=== PATIENT | female | born 1960 | race Caucasian/White ===

== ENCOUNTER 2018-03-01 11:28 | Day surgery (SDC) | payer OTHER ==
[2018-03-01] MEDS ORDERED: FENTAnyl 50 MCG/ML VIAL (13:34)
[2018-03-01] MEDS ORDERED: PROPOFOL 20 ML (13:34)
== END 2018-03-01 15:11 | disposition home or self-care (01) ==
LOC: GIL 11:28
DX: Z12.11 Encounter for screening for malignant neoplasm of colon (principal); K57.90 Diverticulosis of intestine, part unspecified, without perforation or abscess without bleeding; K64.8 Other hemorrhoids; E11.9 Type 2 diabetes mellitus without complications; I10 Essential (primary) hypertension; I25.10 Atherosclerotic heart disease of native coronary artery without angina pectoris
CPT/HCPCS: 45378; 82962